=== PATIENT | male | born 1995 | race Caucasian/White ===

== ENCOUNTER 2018-03-29 13:29 | Emergency (ER) | payer MEDICAID ==
[~2018-03-29] VITALS: Ht 180.3 cm; Wt 61.2 kg
[2018-03-29 13:39] VITALS: BP 111/56
== END 2018-03-29 14:24 | disposition home or self-care (01) ==
LOC: ER 13:30
DX: B34.9 Viral infection, unspecified (principal); J02.8 Acute pharyngitis due to other specified organisms; R11.2 Nausea with vomiting, unspecified
CPT/HCPCS: 99283; A4606